=== PATIENT | female | born 1960 | race African-American/Black ===

== ENCOUNTER 2018-03-22 17:13 | Emergency (ER) | payer MEDICAID ==
[~2018-03-22] VITALS: Ht 157.5 cm; Wt 96.0 kg
[2018-03-22 18:34] LABS: CLARITY URINE CLEAR (CLEAR); COLOR URINE YELLOW (YELLOW); KETONES URINE NEGATIVE (NEGATIVE); LEUKOCYTE ESTERASE URINE 1+ (NEGATIVE); NITRITE URINE POSITIVE (NEGATIVE); OCCULT BLOOD URINE NEGATIVE (NEGATIVE); PH URINE 5.5 (4.5-8.0); PROTEIN URINE NEGATIVE (NEGATIVE); SPECIFIC GRAVITY URINE 1.018 (1.005-1.030)
[2018-03-22] MEDS ORDERED: ACETAMINOPHEN 325MG TABLET PO ONE (19:30)
[2018-03-22] MEDS ORDERED: KETOROLAC 15MG/ML VIAL IM ONE (19:30)
[2018-03-22 19:58] VITALS: BP 150/67
== END 2018-03-22 19:59 | disposition home or self-care (01) ==
LOC: ER 17:13
DX: S09.8XXA Other specified injuries of head, initial encounter (principal); N39.0 Urinary tract infection, site not specified; R05 Cough; E11.9 Type 2 diabetes mellitus without complications; I10 Essential (primary) hypertension; F17.200 Nicotine dependence, unspecified, uncomplicated; W22.8XXA Striking against or struck by other objects, initial encounter; Y93.89 Activity, other specified; Y92.89 Other specified places as the place of occurrence of the external cause; Y99.8 Other external cause status
CPT/HCPCS: 81003; 82962; 96372; 99283; J1885; Z7610

== ENCOUNTER 2023-03-29 03:07 | Emergency (ER) | payer MEDICARE, MEDICAID ==
[~2023-03-29] VITALS: Ht 177.8 cm; Wt 82.0 kg
[2023-03-29 03:12] VITALS: BP 106/75; TEMP 98.5
[2023-03-29] MEDS ORDERED: ALBUTEROL (0.5%) 2.5MG/0.5ML NEB HHN ONE (03:30)
[2023-03-29 03:55] VITALS: PULSE 77; RESP 20; O2SAT 98
[2023-03-29] MEDS ORDERED: ALBU6.7H15 INH (04:18)
[2023-03-29] MEDS ORDERED: ACETAMINOPHEN 325MG TABLET PO ONE (04:30)
== END 2023-03-29 05:03 | disposition home or self-care (01) ==
LOC: ER 03:07
DX: R05.9 Cough, unspecified (principal); R06.02 Shortness of breath; I11.0 Hypertensive heart disease with heart failure; I50.9 Heart failure, unspecified; E11.9 Type 2 diabetes mellitus without complications
CPT/HCPCS: 71045; 94640; 99283